=== PATIENT | male | born 1975 ===

== ENCOUNTER 2018-06-14 11:07 | Emergency (ER) | payer OTHER ==
[~2018-06-14] VITALS: Ht 177.8 cm; Wt 97.5 kg
[2018-06-14] MEDS ORDERED: IBUPROFEN800 MG PO (14:32)
[2018-06-14] MEDS ORDERED: NORFLEX100MG PO (14:32)
== END 2018-06-14 14:33 | disposition home or self-care (01) ==
LOC: ER 11:07
DX: S59.801A Other specified injuries of right elbow, initial encounter (principal); W18.39XA Other fall on same level, initial encounter; Y93.89 Activity, other specified; Y92.89 Other specified places as the place of occurrence of the external cause; Y99.8 Other external cause status